=== PATIENT | female | born 1990 | race African-American/Black ===

== ENCOUNTER 2016-08-11 10:15 | Emergency (ER) | payer OTHER ==
--- NOTE | 2016-08-11 11:38 | ED Physician Documentation ---
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 For the last 2 months without specific injury she's had pain at the proximal phalanx of the right thumb and MCP of the right thumb that is worse with thumb extension. She does do repetitive things at work with her hand.) Review of Systems Constitutional: denies: Fever, Chills GI: denies: Abdominal Pain, Nausea : denies: Dysuria, Now EGA PD PAST MEDICAL HISTORY - Past Surgical History Past Surgical History: No - Present Medications Home Medications: Ambulatory Orders Medication Instructions Recorded Confirmed Ibuprofen [Motrin] 800 mg PO Q8H PRN #30 tablet 08/11/16 oxyCODONE/ACET 5/325 [Percocet 5 1 tab PO QID PRN 08/11/16 08/11/16 mg/325 mg] - Allergies Allergies/Adverse Reactions: Allergies Allergy/AdvReac Type Severity Reaction Status Date / Time No Known Drug Allergies Allergy Verified 06/21/16 03:58 - Social History Does the pt smoke?: No Smoking Status: Never smoker Does the pt drink ETOH?: No Does the pt have substance abuse?: No - Immunizations Immunizations are current?: Yes - POLST Patient has POLST: No PD ED PE NORMAL - Vitals Vital signs reviewed: Yes - General General: Alert and oriented X 3, No acute distress - Extremities Extremities: Other (Mildly tender at the MCP of proximal phalanx of the right thumb. No limited range of motion. She has some pain with forced extension and flexion but not abduction or adduction. Negative DeQuervain's test.) - Neuro Neuro: Alert and oriented X 3, Normal speech - Psych Psych: Normal mood, Normal affect Results - Vitals Vitals: Vital Signs - 24 hr 08/11/16 08/11/16 10:19 12:14 Temperature 36.2 C L Heart Rate 83 84 Respiratory 12 18 Rate Blood Pressure 98/72 113/82 H O2 Saturation 99 100 Oxygen O2 Source Room air - Rads (name of study) 3 views right thumb Radiology: EMP read contemporaneously (normal) PD MEDICAL DECISION MAKING - ED course ED course: Seems like a tendinitis of the thumb, not a DeQuervain's. She is placed in a thumb spica splint, Velcro, given work prescriptions and advised him primary care followup. Departure - Departure Disposition: 01 Home, Self Care Clinical Impression: Tendinitis of thumb Condition: Good Record reviewed to determine appropriate education?: Yes Instructions: ED Sprain Wrist Prescriptions: Ibuprofen [Motrin] 800 mg PO Q8H PRN #30 tablet PRN Reason: PAIN &/OR FEVER Comments: Wear the splint at work for the next week. [place] Forms: Activity restrictions Discharge Date/Time: 08/11/16 12:15
[2016-08-11 12:14] VITALS: BP 113/82
--- NOTE | 2016-08-11 12:24 | XRAY Preliminary Report ---
Exam: XR Finger(s) RT IMPRESSION: Normal digit radiography. [facility] SITE ID: [id number]
--- NOTE | 2016-08-11 12:26 | XRAY Report ---
EXAM: RIGHT FIRST DIGIT RADIOGRAPHY EXAM DATE: 08/11/2016 12:10 PM. CLINICAL HISTORY: Thumb pain, MCP. COMPARISON: None. TECHNIQUE: 3 views. FINDINGS: Bones: Normal. No fracture or bone lesion. Joints: Normal. No effusions. No subluxations. Soft Tissues: Normal. No soft tissue swelling. IMPRESSION: Normal digit radiography. [facility] Referring Provider Line: [phone] SITE ID: [id number]
== END 2016-08-11 12:15 | disposition home or self-care (01) ==
LOC: ED 10:15
DX: M77.9 Enthesopathy, unspecified (principal)
CPT/HCPCS: 29125; 73140; 99283

== ENCOUNTER 2016-09-06 08:14 | Emergency (ER) | payer OTHER ==
[2016-09-06] MEDS ORDERED: ACETAMINOPHEN 325 MG TABLET PO STA (08:42)
[2016-09-06] MEDS ORDERED: DEXAMETHASONE 10 MG/ML VIAL PO STA (08:42)
[2016-09-06] MEDS ORDERED: DEXAMETHASONE 10 MG/ML VIAL ONE (08:56)
[2016-09-06] MEDS ORDERED: CHERRY SYRUP 10 ML UDC PO ONE (08:56)
[2016-09-06] MEDS ORDERED: ACETAMINOPHEN 325 MG TABLET PO ONE (08:56)
== END 2016-09-06 10:00 | disposition home or self-care (01) ==
DX: J06.9 Acute upper respiratory infection, unspecified (principal)
CPT/HCPCS: 87275; 87276; 99283; A9270

== ENCOUNTER 2017-01-14 14:10 | Emergency (ER) | payer OTHER ==
[2017-01-14] MEDS ORDERED: ONDANSETRON ODT 4 MG TABLET TL STA (15:27)
--- NOTE | 2017-01-14 15:28 | ED Physician Documentation ---
History of Present Illness - Stated complaint Stated Complaint: UNABLE TO EAT - Chief complaint Chief Complaint: General - History obtained from History obtained from: Patient - History of Present Illness Timing: Other (26-year-old woman who for the last 3 days has had some generalized abdominal cramping and low appetite with mild nausea. Last night got worse because she ate and then went out drinking with some friends and this morning was having a little bit of vomiting. She doubts , she has an IUD in place. She has not had any diarrhea, her bowel movements have been normal despite low oral intake.) Review of Systems Constitutional: denies: Fever, Chills Nose: denies: Rhinorrhea / runny nose, Congestion GI: reports: Vomiting (Once today). denies: Constipation, Diarrhea, Bloody / black stool Musculoskeletal: denies: Neck pain, Back pain PD PAST MEDICAL HISTORY - Past Surgical History Past Surgical History: No - Present Medications Home Medications: Ambulatory Orders Medication Instructions Recorded Confirmed Fexofenadine/Pseudoephedrine 1 tab PO DAILY 01/14/17 01/14/17 [Kinga-D 12 Hour Tablet] Ondansetron HCl [Zofran] 4 mg PO Q6H PRN #10 tablet 01/14/17 - Allergies Allergies/Adverse Reactions: Allergies Allergy/AdvReac Type Severity Reaction Status Date / Time No Known Drug Allergies Allergy Verified 06/21/16 03:58 - Social History Does the pt smoke?: No Smoking Status: Never smoker Does the pt drink ETOH?: No Does the pt have substance abuse?: No - Immunizations Immunizations are current?: Yes - POLST Patient has POLST: No PD ED PE NORMAL - Vitals Vital signs reviewed: Yes - General General: Alert and oriented X 3, No acute distress - HEENT HEENT: Pharynx benign - Abdomen Abdomen: Normal bowel sounds, Soft, Non tender - Neuro Neuro: Alert and oriented X 3, Normal speech - Psych Psych: Normal mood, Normal affect Results - Vitals Vitals: Vital Signs - 24 hr 01/14/17 14:15 Temperature 36.3 C L Heart Rate 77 Respiratory 16 Rate Blood Pressure 101/68 O2 Saturation 100 Oxygen O2 Source Room air - Labs Labs: Laboratory Tests 01/14/17 01/14/17 15:19 15:42 Sodium 140 Potassium 4.0 Chloride 106 Carbon Dioxide 27 Anion Gap 7.0 BUN 20 Creatinine 0.8 Estimated GFR (MDRD) 106 Glucose 89 Calcium 9.3 Total Bilirubin 0.9 AST 20 ALT 14 Alkaline Phosphatase 44 Total Protein 7.5 Albumin 4.7 Globulin 2.8 Albumin/Globulin Ratio 1.7 Lipase 18 L Urine Color YELLOW Urine Clarity CLEAR Urine pH 6.0 Ur Specific [place] >=1.030 H Urine Protein NEGATIVE Urine Glucose (UA) NEGATIVE Urine Ketones NEGATIVE Urine Occult Blood NEGATIVE Urine Nitrite NEGATIVE Urine Bilirubin NEGATIVE Urine Urobilinogen 0.2 (NORMAL) Ur Leukocyte Esterase NEGATIVE Ur Microscopic Review NOT INDICATED Urine Culture Comments NOT INDICATED Urine HCG, Qual NEGATIVE PD MEDICAL DECISION MAKING - ED course ED course: 26-year-old woman with few days of abdominal cramping, now with worse diminished appetite after going out drinking last night. There is no abdominal tenderness, she felt better after Zofran. Departure - Departure Disposition: 01 Home, Self Care Clinical Impression: Decreased appetite Condition: Good Record reviewed to determine appropriate education?: Yes Prescriptions: Ondansetron HCl [Zofran] 4 mg PO Q6H PRN #10 tablet PRN Reason: Nausea / Vomiting Comments: Return if pain worsens or if symptoms are not gone within 12-24 hours, also return immediately if you develop new symptoms such as fever. Forms: Activity restrictions
[2017-01-14] MEDS ORDERED: ONDANSETRON ODT 4 MG TABLET ONE (15:31)
[2017-01-14 15:32] LABS: BILIRUBIN,URINE NEGATIVE (NEGATIVE)
[2017-01-14 15:36] LABS: HCG UR QUAL NEGATIVE; UA CHARGE (STRIP ONLY) YES; UR CULTURE IF IND NOT INDICATED
[2017-01-14 16:01] LABS: ALBUMIN/GLOBULIN RATIO 1.7 (1.0-2.2); BILIRUBIN,TOTAL 0.9 mg/dL (0.2-1.0); CALCIUM 9.3 mg/dL (8.5-10.3); CREATININE 0.8 mg/dL (0.4-1.0); TOTAL PROTEIN 7.5 g/dL (6.7-8.2)
[2017-01-14 16:31] VITALS: BP 102/68
== END 2017-01-14 16:30 | disposition home or self-care (01) ==
LOC: ED 14:10
DX: R63.0 Anorexia (principal)
CPT/HCPCS: 36415; 80053; 81003; 81025; 83690; 99283; Q0162; 81001; 87086

== ENCOUNTER 2017-01-22 03:55 | Emergency (ER) | payer OTHER ==
[2017-01-22 04:06] VITALS: BP 105/63
--- NOTE | 2017-01-22 04:18 | ED Physician Documentation ---
PD HPI ABD PAIN - Stated complaint Stated Complaint: FEMALE - Chief complaint Chief Complaint: Abd Pain - History obtained from History obtained from: Patient - History of Present Illness Timing - onset: How many days ago (2-3) Timing - duration: Days Timing - details: Gradual onset Quality: Cramping Location: RUQ, Epigastric, LUQ Radiation: Other (no radiation) Improved by: Other (no ameliorating factors) Worsened by: Other (no exacerbating factors) Associated symptoms: Constipation. No: Fever, Nausea, Vomiting, Diarrhea, Dysuria Recently seen: Emergency Dept - Additional information Additional information: c/o constipation; urge to defecate but only small BM x 2-3 days with mucous. Review of Systems GI: reports: Abdominal Pain, Constipation. 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 - Allergies Allergies/Adverse Reactions: Allergies Allergy/AdvReac Type Severity Reaction Status Date / Time No Known Drug Allergies Allergy Verified 01/22/17 04:06 - Social History Does the pt smoke?: No Smoking Status: Never smoker Does the pt drink ETOH?: No Does the pt have substance abuse?: No - Immunizations Immunizations are current?: Yes - POLST Patient has POLST: No PD ED PE NORMAL - Vitals Vital signs reviewed: Yes - General General: Alert and oriented X 3, No acute distress, Well developed/nourished - Cardiac Cardiac: RRR, No murmur - Respiratory Respiratory: No respiratory distress, Clear bilaterally - Abdomen Abdomen: Normal bowel sounds, Soft, Non tender, Non distended Results - Vitals Vitals: Vital Signs - 24 hr 01/22/17 03:58 Temperature 37.0 C Heart Rate 85 Respiratory 14 Rate Blood Pressure 105/63 O2 Saturation 99 Oxygen O2 Source Room air PD MEDICAL DECISION MAKING - ED course Complexity details: considered differential, d/w patient ED course: Recent ED w/u for abd. pain that was unremarkable. She presents today with c/o constipation. Benign appearance and benign abdominal exam. Given magnesium citrate to take home, instructed to contact her PMD to arrange follow-up Departure - Departure Disposition: Home, Self Care Clinical Impression: Constipation Condition: Good Instructions: ED Constipation Follow-Up: [facility] [Provider Group] Discharge Date/Time: 01/22/17 05:00
[2017-01-22] MEDS ORDERED: MAGNESIUM CITRATE 296 ML BOTTLE PO STA (04:53)
[2017-01-22] MEDS ORDERED: MAGNESIUM CITRATE 296 ML BOTTLE ONE (04:55)
== END 2017-01-22 05:00 | disposition home or self-care (01) ==
LOC: ED 03:55
DX: K59.00 Constipation, unspecified (principal)
CPT/HCPCS: 99283; A9270

== ENCOUNTER 2017-04-15 11:55 | Emergency (ER) | payer OTHER ==
[2017-04-15 12:01] VITALS: BP 121/81
--- NOTE | 2017-04-15 12:08 | ED Physician Documentation ---
PD HPI SKIN - Stated complaint Stated Complaint: RASH - Chief complaint Chief Complaint: Heent - History obtained from History obtained from: Patient - History of Present Illness Timing - onset: How many weeks ago (few) Timing - duration: Weeks Timing - details: Gradual onset, Still present Location: Neck (right anterior), LUE (upper arm with 2 patches of itchy rash as well) Quality / character: Itchy, Burning Contributing factors: No: Exposed to medication, Exposed to food, Insect bite / sting Recently seen: Clinic (seen at [facility] and given Kenalog cream, stating no better with it and it seemed to irritate the neck part and make it burn more.) Review of Systems Constitutional: denies: Fever, Chills Nose: denies: Rhinorrhea / runny nose, Congestion Throat: denies: Sore throat Respiratory: denies: Cough GI: denies: Vomiting, Diarrhea PD PAST MEDICAL HISTORY - Past Surgical History 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 04/15/17 [Clotrimazole-Betamethasone Crm] Hydroxyzine Pamoate 04/15/17 Triamcinolone 0.1% Cream [Kenalog 04/15/17 0.1% Cream] - Allergies Allergies/Adverse Reactions: Allergies Allergy/AdvReac Type Severity Reaction Status Date / Time No Known Drug Allergies Allergy Verified 04/15/17 12:01 - Social History Does the pt smoke?: No Smoking Status: Never smoker Does the pt drink ETOH?: No Does the pt have substance abuse?: No - Immunizations Immunizations are current?: Yes - POLST Patient has POLST: No PD ED PE NORMAL - Vitals Vital signs reviewed: Yes - General General: Alert and oriented X 3, No acute distress, Well developed/nourished - Neck Neck: No adenopathy - Derm Derm: Normal color, Warm and dry, Other (right side of neck and left upper arm with discrete raised, slightly bumpy but not scaly nor vesicular spots of rash about 1-2 cm each. No pustularity nor induration. ) Results - Vitals Vitals: Vital Signs - 24 hr 04/15/17 11:59 Temperature 36.4 C L Heart Rate 96 Respiratory 14 Rate Blood Pressure 121/81 H O2 Saturation 100 Oxygen O2 Source Room air Departure - Departure Disposition: 01 Home, Self Care Clinical Impression: Acute dermatitis Condition: Stable Record reviewed to determine appropriate education?: Yes Instructions: ED Dermatitis Non Specific Rash Follow-Up: [facility] [Primary Care Provider] - Prescriptions: Cetirizine [ZyrTEC] 10 mg PO DAILY #20 tablet Clotrimazole/Betamethasone Dip [Clotrimazole-Betamethasone Crm] 1 applic TP BID #15 cream..g. Comments: Since the rash did not really improve with the Kenalog, it may be more than just irritation. It looks like it could be a fungal type skin infection and so we will change to a combination steroid with antifungal. He can also use a daily antihistamine to help with some itchiness. Recheck if not improving steadily over the next several days and completely gone by 4-5 days. Discharge Date/Time: 04/15/17 12:53
[2017-04-15] MEDS ORDERED: DEXAMETHASONE 10 MG/ML VIAL PO STA (12:27)
[2017-04-15] MEDS ORDERED: CHERRY SYRUP 10 ML UDC PO ONE (12:54)
[2017-04-15] MEDS ORDERED: DEXAMETHASONE 10 MG/ML VIAL ONE (12:54)
== END 2017-04-15 12:53 | disposition home or self-care (01) ==
LOC: ED 11:55
DX: L30.9 Dermatitis, unspecified (principal)
CPT/HCPCS: 99283; A9270